=== PATIENT | male | born 1940 | race Caucasian/White ===

== ENCOUNTER → 2020-02-05 | Outpatient (CLI) | payer OTHER, BC ==
[~2020-02-05] MED LIST: ACIPHEX 20 MG T20 MG PO; ADULT LOW DOSE81 MG PO; ALBUTEROL INHAL17 GM IH; ALEVE PM CAPLE1 EACH PO; AZITHROMYCIN 2250 MG PO; BENAZEPRIL HCL10 MG PO; CIPROFLOXACIN500 M1 PO; FLEXERIL PO; LIPITOR 20 MG T20 M1 PO; LOTENSIN20 MG PO; MECLIZINE HCL25 M1 PO; MEDROLDOSEPACK PO; NABUMETONE 750750 M1 PO; NORCO 5-325 TA1 EACH PO; PROAIR HFA8.5 GM IH; PROTONIX40 M2 PO; RED YEAST RICE600 MG PO; SYMBICORT; SYMBICORT160 MCG/4. INH; TESSALON PERLE100 MG PO; TUSSIONEX PENN473 ML PO; VENTOLIN HFA 1818 GM INH; VITAMIN D3400 UNIT PO
== END ==
LOC: SJCVC 10:57
PROVIDERS: ATTEND Internal Medicine Cardiovascular Disease
DX: E78.00 Pure hypercholesterolemia, unspecified (principal); I10 Essential (primary) hypertension; K21.9 Gastro-esophageal reflux disease without esophagitis; I38 Endocarditis, valve unspecified; Z79.899 Other long term (current) drug therapy; Z87.891 Personal history of nicotine dependence

== ENCOUNTER → 2020-02-06 | Outpatient (CLI) | payer OTHER | LOC: CAT 13:24 | PROVIDERS: ATTEND Internal Medicine Cardiovascular Disease | DX: Z13.6 Encounter for screening for cardiovascular disorders (principal); E78.00 Pure hypercholesterolemia, unspecified; I25.10 Atherosclerotic heart disease of native coronary artery without angina pectoris ==

== ENCOUNTER → 2021-01-18 | Outpatient (CLI) | payer OTHER, BC | LOC: SJCVCIMAG 09:24 | PROVIDERS: ATTEND Internal Medicine Cardiovascular Disease | DX: I10 Essential (primary) hypertension (principal); E78.5 Hyperlipidemia, unspecified; E78.00 Pure hypercholesterolemia, unspecified; F41.9 Anxiety disorder, unspecified; Z79.82 Long term (current) use of aspirin; Z79.899 Other long term (current) drug therapy; Z87.891 Personal history of nicotine dependence ==